=== PATIENT | male | born 1950 | race African-American/Black ===

== ENCOUNTER 2019-11-20 08:26 | Inpatient (IN) | payer MEDICARE, MEDICAID ==
[~2019-11-20] VITALS: Ht 170.2 cm; Wt 68.9 kg
[~2019-11-20 08:26] MED LIST: CA C-1 PO; CYAN-50 PO; ESCI10TA PO; FERR325T6 PO; FOLI-43 PO; GABA-531 PO; NIFE90TA60 PO; PANT40TA4 PO; TAMS-11 PO; UBID100C12 PO
[2019-11-20] MEDS ORDERED: DEXT 5%/0.45% NACL KCL 20MEQ/L 1,000 ML IV SCH (08:28)
[2019-11-20] MEDS ORDERED: ACETAMINOPHEN 650MG SUPP PR PRN (08:30)
[2019-11-20] MEDS ORDERED: METRONIDAZOLE 500 MG PREMIX 100 ML IV SCH (08:30)
[2019-11-20] MEDS ORDERED: ONDANSETRON HCL 4MG/2ML INJ IV PRN ×2 (08:30→11:00)
[2019-11-20] MEDS ORDERED: LEVOFLOXACIN 500MG PREMIX 100 ML IV SCH (08:30)
[2019-11-20] MEDS ORDERED: MORPHINE SULFATE 2 MG/ML CPJ (NOT FOR IM USE) IV PRN ×2 (08:30→11:00)
[2019-11-20] MEDS ORDERED: LACTATED RINGERS 1,000 ML IV SCH (08:45)
[2019-11-20] MEDS ORDERED: BUPIVACAINE HCL 0.5% (5MG/ML) 50ML ONE (08:48)
[2019-11-20] MEDS ORDERED: FENTANYL CITRATE/PF 50MCG/ML 2ML VIAL ONE (09:33)
[2019-11-20] MEDS ORDERED: MIDAZOLAM HCL 2 MG/2 ML VIAL ONE (09:33)
[2019-11-20] MEDS ORDERED: NEOSTIGMINE METHYLSULFATE 1MG/ML 10 ML VIAL ONE (09:33)
[2019-11-20] MEDS ORDERED: ROCURONIUM BROMIDE 10MG/ML VIAL 5ML IV ONE (09:33)
[2019-11-20] MEDS ORDERED: PROPOFOL 200MG/20ML VIAL IV ONE (09:33)
[2019-11-20] MEDS ORDERED: SUCCINYLCHOLINE CHLORIDE 200MG/10ML IV ONE (09:34)
[2019-11-20] MEDS ORDERED: METOCLOPRAMIDE HCL 10MG/2ML VIAL ONE (09:34)
[2019-11-20] MEDS ORDERED: SODIUM CHLORIDE 0.9% 10ML VIAL ONE (09:34)
[2019-11-20] MEDS ORDERED: LIDOCAINE HCL/PF 1% 10 MG/ML 5ML VIAL ONE (09:34)
[2019-11-20] MEDS ORDERED: EPHEDRINE SULFATE 50MG/ML VIAL ONE (09:34)
[2019-11-20] MEDS ORDERED: GLYCOPYRROLATE 0.2 MG/ML 2ML VIAL ONE (09:34)
[2019-11-20] MEDS ORDERED: PHENYLEPHRINE HCL 10 MG/ML 1ML (IV VIAL) IV ONE (09:34)
[2019-11-20] MEDS ORDERED: CEFAZOLIN SODIUM 1000MG/VIAL ONE (09:34)
[2019-11-20 09:35] LABS: HEMATOCRIT 32.8 % (42.0-52.0); HEMOGLOBIN 10.7 g/dL (14.0-18.0); MEAN CORPUSCULAR HEMOGLOBIN 22.2 pg (28.0-32.0); MEAN CORPUSCULAR VOLUME 67.9 fL (80.0-94.0); PLATELET 598 x1000/uL (130-400); RED BLOOD CELL COUNT 4.83 mill/uL (4.7-6.1); RED CELL DISTRIBUTION WIDTH 18.4 % (11.6-14.6)
[2019-11-20] MEDS ORDERED: ALBUTEROL 90MCG/PUFF 17GM INHALER INH ONE (10:07)
[2019-11-20] MEDS ORDERED: ALBUMIN HUMAN 12.5G/250ML (5%) IV ONE (10:17)
[2019-11-20] MEDS ORDERED: BUPIVACAINE HCL 0.5% 290 ML in ON-Q PM025 DRUG DELIV DEVICE 1 EA IR NR (11:15)
[2019-11-20] MEDS: HYDROMORPHONE HCL/PF 2MG/ML CPJ IV PRN ×2 (11:34→11:51)
[2019-11-20] MEDS ORDERED: DIPHENHYDRAMINE INJ IV PRN (12:00)
[2019-11-20] MEDS ORDERED: ONDANSETRON INJ IV PRN (12:00)
[2019-11-20] MEDS ORDERED: HYDROMORPHONE PCA 10MG/50ML IV PRN (12:00)
[2019-11-20] MEDS ORDERED: NALOXONE INJ IV PRN (12:00)
[2019-11-20 14:00] VITALS: BP 132/81
[2019-11-20] MEDS ORDERED: SODIUM CHLORIDE 0.9% 1,000 ML IV ONE (14:30)
[2019-11-20 14:46] VITALS: BP 132/81
[2019-11-20 16:00] VITALS: BP 130/82
[2019-11-20] MEDS ORDERED: LEVOFLOXACIN 500MG PREMIX 100 ML IV NR (16:00)
[2019-11-20] MEDS ORDERED: METRONIDAZOLE 500 MG PREMIX 100 ML IV NR (18:00)
[2019-11-20 19:19] LABS: CHLORIDE 105 mEq/L (98-107)
[2019-11-20 20:00] VITALS: BP 134/87
[2019-11-20] MEDS: DEXT 5%/0.45% NACL KCL 20MEQ/L 1,000 ML IV SCH (21:32)
[2019-11-20] MEDS: FAMOTIDINE 20MG/2ML VIAL IV SCH (21:41)
[2019-11-21] VITALS: BP 135/85
[2019-11-21] MEDS: METRONIDAZOLE 500 MG PREMIX 100 ML IV SCH ×2 (02:09→09:36)
[2019-11-21 04:00] VITALS: BP 147/91
[2019-11-21 08:00] VITALS: BP 145/87
[2019-11-21] MEDS: DEXT 5%/0.45% NACL KCL 20MEQ/L 1,000 ML IV SCH ×2 (09:36→17:00)
[2019-11-21 12:00] VITALS: BP 147/82
[2019-11-21 16:00] VITALS: BP 157/92
[2019-11-21 20:00] VITALS: BP 151/92
[2019-11-21] MEDS: FAMOTIDINE 20MG/2ML VIAL IV SCH (21:44)
[2019-11-22] VITALS: BP 140/92
[2019-11-22] MEDS: DEXT 5%/0.45% NACL KCL 20MEQ/L 1,000 ML IV SCH ×2 (02:27→13:00)
[2019-11-22 04:00] VITALS: BP 138/95
[2019-11-22 08:00] VITALS: BP 139/89
[2019-11-22 12:00] VITALS: BP 141/92
[2019-11-22 16:00] VITALS: BP 125/95
[2019-11-22 20:00] VITALS: BP 142/102
[2019-11-22] MEDS: FAMOTIDINE 20MG/2ML VIAL IV SCH (21:23)
[2019-11-22] MEDS: NIFEDIPINE XL 90MG TAB PO SCH (21:24)
[2019-11-23] VITALS: BP 152/94
[2019-11-23 04:00] VITALS: BP 131/93
[2019-11-23] MEDS: DEXT 5%/0.45% NACL KCL 20MEQ/L 1,000 ML IV SCH ×2 (04:22→19:43)
[2019-11-23 08:00] VITALS: BP 127/96
[2019-11-23] MEDS: TAMSULOSIN HCL 0.4MG SR CAPSULE PO SCH (08:12)
[2019-11-23] MEDS: FOLIC ACID 1MG TABLET PO SCH (08:12)
[2019-11-23] MEDS: NIFEDIPINE XL 90MG TAB PO SCH (08:12)
[2019-11-23] MEDS: CYANOCOBALAMIN 1000MCG TABLET PO SCH (08:13)
[2019-11-23] MEDS: FERROUS SULFATE 325MG TABLET PO SCH ×2 (08:13→16:06)
[2019-11-23] MEDS: GABAPENTIN 300MG CAPSULE PO SCH ×3 (08:13→16:06)
[2019-11-23] MEDS: CITALOPRAM HYDROBROMIDE 10MG TABLET PO SCH (08:13)
[2019-11-23] MEDS ORDERED: FERROUS SULFATE PO SCH (09:00)
[2019-11-23] MEDS ORDERED: UBIDECARENONE 100 MG PO SCH (09:00)
[2019-11-23] MEDS ORDERED: ESCITALOPRAM OXALATE 10 MG PO SCH (09:00)
[2019-11-23] MEDS ORDERED: PANTOPRAZOLE 40MG DR TABLET PO SCH (09:00)
[2019-11-23 12:00] VITALS: BP 141/88
[2019-11-23 16:00] VITALS: BP 136/90
[2019-11-23 20:00] VITALS: BP 125/87
[2019-11-23] MEDS ORDERED: FAMOTIDINE 20MG TABLET PO SCH (21:00)
[2019-11-24] VITALS: BP 132/90
[2019-11-24 04:00] VITALS: BP 148/92
[2019-11-24 08:00] VITALS: BP 126/86
[2019-11-24] MEDS: GABAPENTIN 300MG CAPSULE PO SCH ×2 (08:06→12:20)
[2019-11-24] MEDS: NIFEDIPINE XL 90MG TAB PO SCH (08:07)
[2019-11-24] MEDS: FERROUS SULFATE 325MG TABLET PO SCH (08:07)
[2019-11-24] MEDS: CYANOCOBALAMIN 1000MCG TABLET PO SCH (08:07)
[2019-11-24] MEDS: CITALOPRAM HYDROBROMIDE 10MG TABLET PO SCH (08:07)
[2019-11-24] MEDS: TAMSULOSIN HCL 0.4MG SR CAPSULE PO SCH (08:07)
[2019-11-24] MEDS: FOLIC ACID 1MG TABLET PO SCH (08:07)
[2019-11-24 09:13] VITALS: BP 126/88
== END 2019-11-24 16:31 | disposition home or self-care (01) | DRG 231 ==
LOC: OR 08:26 → 6EST 08:27
PROVIDERS: ADMIT Surgery; ATTEND Surgery
PROC: 0DBN0ZZ Excision of Sigmoid Colon, Open Approach (ICD-10-PCS; principal; 2019-11-20)
PROC: 0DBP0ZZ Excision of Rectum, Open Approach (ICD-10-PCS; 2019-11-20)
DX: C20 Malignant neoplasm of rectum (principal); Z79.899 Other long term (current) drug therapy
CPT/HCPCS: 36415; 80048; 85027; 86850; 86900; 86920; 88307; 88309; 88329; 97162; J0330; J0690; J1170; J1956; J2250; J2370; J2405; J2704; J2710; J2765; J3010; J3490; P9041